=== PATIENT | male | born 1955 | race Caucasian/White ===

== ENCOUNTER 2017-10-06 09:14 | Inpatient (IN) | payer OTHER ==
[2017-10-06] MEDS ORDERED: MIDAZOLAM 1 MG/ML 2 ML INJ (10:38)
[2017-10-06] MEDS ORDERED: IODIXANOL LOCM 100 ML BTL (10:38)
[2017-10-06] MEDS ORDERED: HEPARIN 1000 UNITS/ML 10 ML INJ (10:38)
[2017-10-06] MEDS ORDERED: LIDOCAINE 1% (MDV) 20 ML INJ (10:38)
[2017-10-06] MEDS ORDERED: VERAPAMIL 5 MG INJ (10:39)
[2017-10-06] MEDS ORDERED: FENTAnyl 50 MCG/ML VIAL (10:39)
[2017-10-06] MEDS ORDERED: NITROGLYCERIN (IC) 100 MCG/ML INJ (10:39)
[2017-10-06] MEDS ORDERED: PHENYLephrine (100 MCG/ML) 5ML SYG (15:09)
[2017-10-06] MEDS ORDERED: INSULIN ASPART [NOVOLOG] 3 ML PEN SC ×2 (18:05→21:00)
[2017-10-06] MEDS ORDERED: GLUCOSE GEL 15 GRAM TUBE PO ×2 (18:30)
[2017-10-06] MEDS ORDERED: GLUCAGON 1 MG INJ IM (18:30)
[2017-10-06] MEDS ORDERED: DEXTROSE 50% 50 ML SYRINGE IV ×2 (18:30)
[2017-10-06] MEDS: INSULIN ASPART [NOVOLOG] 3 ML PEN SC ×2 (18:30→20:55)
[2017-10-06] MEDS ORDERED: GLUCOSE GEL 15 GRAM TUBE BUCCAL (18:30)
[2017-10-06] MEDS: FUROSEMIDE 20 MG TAB PO (19:09)
[2017-10-06] MEDS: ATORVASTATIN 40 MG TAB PO (20:47)
[2017-10-07] MEDS: ACCU-CHEK XX (01:33)
[2017-10-07] MEDS: PANTOPRAZOLE (EC) 40 MG TAB PO (05:58)
[2017-10-07] MEDS: FUROSEMIDE 20 MG TAB PO ×2 (05:58→17:04)
[2017-10-07 07:54] LABS: ADD MAN DIFF? NO
[2017-10-07 07:57] LABS: BASOPHIL # 0.1 10^3/ul (0.0-0.1); BASOPHILS % 0.5 % (0.0-2.0); EOSINOPHILS % 0.1 % (0.0-7.0); HEMOGLOBIN 12.7 g/dl (14.0-18.0); LYMPHOCYTES # 3.4 10^3/ul (0.8-2.9); MEAN CORPUSCULAR HEMOGLOBIN 26.7 pg (29.0-33.0); MEAN CORPUSCULAR HGB CONC 32.6 g/dl (32.0-37.0); MEAN CORPUSCULAR VOLUME 82.1 fl (82.0-101.0); MEAN PLATELET VOLUME 11.3 fl (7.4-10.4); MONOCYTE # 1.2 10^3/ul (0.3-0.9); MONOCYTES % 7.6 % (0.0-11.0); NEUTROPHIL # 10.8 10^3/ul (1.6-7.5); NEUTROPHILS % 67.9 % (39.0-77.0); PLATELET COUNT 261 10^3/UL (140-415); RED BLOOD COUNT 4.75 10^6/ul (4.70-6.10); RED CELL DISTRIBUTION WIDTH 15.1 % (11.5-14.5)
[2017-10-07] MEDS: INSULIN ASPART [NOVOLOG] 3 ML PEN SC ×4 (08:00→20:37)
[2017-10-07 08:20] LABS: ANION GAP 12 (8-16); BLOOD UREA NITROGEN 28 mg/dl (7-20); CALCIUM 8.3 mg/dl (8.4-10.2); CARBON DIOXIDE 27 mmol/L (21-31); CHLORIDE 102 mmol/L (97-110); CREATININE 0.87 mg/dl (0.61-1.24); GLUCOSE 117 mg/dl (70-220); PHOSPHORUS 3.2 mg/dl (2.5-4.9); POTASSIUM 3.8 mmol/L (3.5-5.1); SODIUM 137 mmol/L (135-144)
[2017-10-07] MEDS: ASPIRIN (EC) 81 MG TAB PO (08:50)
[2017-10-07] MEDS: ENOXAPARIN 40 MG/0.4 ML SYG SC (08:57)
[2017-10-07] MEDS: LEVOFLOXACIN 750MG/D5W (PMX) 150 ML IVPB (09:00)
[2017-10-07] MEDS ORDERED: LEVOFLOXACIN 750 MG/150 ML BAG IVPB (09:00)
[2017-10-07] MEDS: ZINC OXIDE 20% 30 GM OINT TOP (17:26)
[2017-10-07] MEDS: ATORVASTATIN 40 MG TAB PO (20:38)
[2017-10-08] MEDS: ACCU-CHEK XX (01:59)
[2017-10-08] MEDS: FUROSEMIDE 20 MG TAB PO ×2 (06:00→17:50)
[2017-10-08] MEDS: PANTOPRAZOLE (EC) 40 MG TAB PO (06:00)
[2017-10-08] MEDS: INSULIN ASPART [NOVOLOG] 3 ML PEN SC ×4 (08:00→20:13)
[2017-10-08] MEDS: ZINC OXIDE 20% 30 GM OINT TOP ×3 (09:00→20:11)
[2017-10-08] MEDS: ASPIRIN (EC) 81 MG TAB PO (09:33)
[2017-10-08] MEDS: LEVOFLOXACIN 750MG/D5W (PMX) 150 ML IVPB (09:34)
[2017-10-08] MEDS: ENOXAPARIN 40 MG/0.4 ML SYG SC (09:34)
[2017-10-08] MEDS: ATORVASTATIN 40 MG TAB PO (20:14)
[2017-10-09] MEDS: ACCU-CHEK XX (01:44)
[2017-10-09] MEDS: PANTOPRAZOLE (EC) 40 MG TAB PO (06:22)
[2017-10-09] MEDS: FUROSEMIDE 20 MG TAB PO ×2 (06:22→19:26)
[2017-10-09] MEDS: INSULIN ASPART [NOVOLOG] 3 ML PEN SC ×4 (08:00→21:00)
[2017-10-09] MEDS: LEVOFLOXACIN 750MG/D5W (PMX) 150 ML IVPB (08:44)
[2017-10-09] MEDS: ASPIRIN (EC) 81 MG TAB PO (08:44)
[2017-10-09] MEDS: ENOXAPARIN 40 MG/0.4 ML SYG SC (08:46)
[2017-10-09 10:15] LABS: ADD MAN DIFF? NO
[2017-10-09 10:17] LABS: BASOPHIL # 0.1 10^3/ul (0.0-0.1); BASOPHILS % 0.6 % (0.0-2.0); EOSINOPHILS # 0.3 10^3/ul (0.0-0.5); EOSINOPHILS % 1.8 % (0.0-7.0); HEMATOCRIT 43.4 % (42.0-52.0); HEMOGLOBIN 14.2 g/dl (14.0-18.0); LYMPHOCYTES % 24.9 % (15.0-51.0); MEAN CORPUSCULAR HEMOGLOBIN 26.7 pg (29.0-33.0); MEAN CORPUSCULAR HGB CONC 32.7 g/dl (32.0-37.0); MEAN CORPUSCULAR VOLUME 81.6 fl (82.0-101.0); MEAN PLATELET VOLUME 10.5 fl (7.4-10.4); MONOCYTE # 0.8 10^3/ul (0.3-0.9); MONOCYTES % 5.1 % (0.0-11.0); NEUTROPHIL # 10.3 10^3/ul (1.6-7.5); NEUTROPHILS % 63.3 % (39.0-77.0); PLATELET COUNT 305 10^3/UL (140-415); RED BLOOD COUNT 5.32 10^6/ul (4.70-6.10); RED CELL DISTRIBUTION WIDTH 15.2 % (11.5-14.5)
[2017-10-09 10:17] LABS: WHITE BLOOD COUNT 16.2 10^3/ul (4.8-10.8)
[2017-10-09 10:34] LABS: ANION GAP 11 (8-16); BLOOD UREA NITROGEN 17 mg/dl (7-20); CALCIUM 8.2 mg/dl (8.4-10.2); CARBON DIOXIDE 27 mmol/L (21-31); CHLORIDE 103 mmol/L (97-110); CREATININE 0.79 mg/dl (0.61-1.24); GLUCOSE 115 mg/dl (70-220); POTASSIUM 4.1 mmol/L (3.5-5.1); SODIUM 137 mmol/L (135-144)
[2017-10-09] MEDS ORDERED: IODIXANOL LOCM 100 ML BTL ×2 (10:44→12:28)
[2017-10-09] MEDS ORDERED: VERAPAMIL 5 MG INJ (10:44)
[2017-10-09] MEDS ORDERED: MIDAZOLAM 1 MG/ML 2 ML INJ (10:44)
[2017-10-09] MEDS ORDERED: FENTAnyl 50 MCG/ML VIAL (10:44)
[2017-10-09] MEDS ORDERED: LIDOCAINE 1% (MDV) 20 ML INJ (10:44)
[2017-10-09] MEDS ORDERED: NITROGLYCERIN (IC) 100 MCG/ML INJ (10:45)
[2017-10-09] MEDS ORDERED: ASPIRIN 325 MG TAB (11:07)
[2017-10-09] MEDS ORDERED: TICAGRELOR 90 MG TABLET (11:07)
[2017-10-09] MEDS ORDERED: BIVALIRUDIN 250MG /NS 50 ML 50 ML IVPB ×2 (11:25→12:22)
[2017-10-09] MEDS ORDERED: IOHEXOL 350MG/ML 50 ML BTL (12:28)
[2017-10-09] MEDS ORDERED: NORepinephrine 8MG/250 ML (PMX 250 ML (12:31)
[2017-10-09] MEDS ORDERED: ATROPINE 1 MG/10 ML SYRINGE (19:54)
[2017-10-09] MEDS: ATORVASTATIN 40 MG TAB PO (21:17)
[2017-10-09] MEDS: TICAGRELOR 90 MG TABLET PO (21:19)
[2017-10-09] MEDS: ZINC OXIDE 20% 30 GM OINT TOP (21:53)
[2017-10-10] MEDS: ACCU-CHEK XX (02:00)
[2017-10-10 05:15] LABS: ADD MAN DIFF? NO
[2017-10-10 05:20] LABS: WHITE BLOOD COUNT 17.1 10^3/ul (4.8-10.8)
[2017-10-10 05:20] LABS: BASOPHIL # 0.1 10^3/ul (0.0-0.1); BASOPHILS % 0.5 % (0.0-2.0); EOSINOPHILS # 0.2 10^3/ul (0.0-0.5); EOSINOPHILS % 1.4 % (0.0-7.0); HEMATOCRIT 42.3 % (42.0-52.0); HEMOGLOBIN 13.8 g/dl (14.0-18.0); LYMPHOCYTES # 2.5 10^3/ul (0.8-2.9); LYMPHOCYTES % 14.8 % (15.0-51.0); MEAN CORPUSCULAR HEMOGLOBIN 26.5 pg (29.0-33.0); MEAN CORPUSCULAR HGB CONC 32.6 g/dl (32.0-37.0); MEAN CORPUSCULAR VOLUME 81.3 fl (82.0-101.0); MEAN PLATELET VOLUME 10.9 fl (7.4-10.4); MONOCYTE # 0.9 10^3/ul (0.3-0.9); MONOCYTES % 5.4 % (0.0-11.0); NEUTROPHIL # 12.7 10^3/ul (1.6-7.5); NEUTROPHILS % 73.9 % (39.0-77.0); PLATELET COUNT 307 10^3/UL (140-415); RED CELL DISTRIBUTION WIDTH 15.4 % (11.5-14.5)
[2017-10-10] MEDS: PANTOPRAZOLE (EC) 40 MG TAB PO (05:59)
[2017-10-10] MEDS: FUROSEMIDE 20 MG TAB PO ×2 (06:01→18:11)
[2017-10-10 06:45] LABS: ANION GAP 13 (8-16); BLOOD UREA NITROGEN 17 mg/dl (7-20); CALCIUM 8.4 mg/dl (8.4-10.2); CARBON DIOXIDE 27 mmol/L (21-31); CHLORIDE 100 mmol/L (97-110); CREATININE 0.92 mg/dl (0.61-1.24); GLUCOSE 96 mg/dl (70-220); PHOSPHORUS 3.6 mg/dl (2.5-4.9); POTASSIUM 3.6 mmol/L (3.5-5.1); SODIUM 136 mmol/L (135-144)
[2017-10-10] MEDS: INSULIN ASPART [NOVOLOG] 3 ML PEN SC ×4 (07:35→20:39)
[2017-10-10] MEDS: ASPIRIN (EC) 81 MG TAB PO (08:40)
[2017-10-10] MEDS: LEVOFLOXACIN 750MG/D5W (PMX) 150 ML IVPB (08:40)
[2017-10-10] MEDS: TICAGRELOR 90 MG TABLET PO ×2 (08:42→20:28)
[2017-10-10] MEDS: ENOXAPARIN 40 MG/0.4 ML SYG SC (08:43)
[2017-10-10] MEDS: ZINC OXIDE 20% 30 GM OINT TOP ×2 (09:57→20:40)
[2017-10-10] MEDS ORDERED: ATROPINE 1 MG/10 ML SYRINGE (14:02)
[2017-10-10 17:43] LABS: ADD UMIC NO; UR ASCORBIC ACID NEGATIVE (NEGATIVE); UR BILIRUBIN (Dip) NEGATIVE (NEGATIVE); UR BLOOD (Dip) NEGATIVE (NEGATIVE); UR CLARITY CLEAR (CLEAR); UR COLOR YELLOW (YELLOW); UR GLUCOSE (Dip) NEGATIVE (NEGATIVE); UR KETONES (Dip) NEGATIVE (NEGATIVE); UR LEUKOCYTE ESTERASE (Dip) NEGATIVE Leu/ul (NEGATIVE); UR NITRITE (Dip) NEGATIVE (NEGATIVE); UR SPECIFIC GRAVITY (Dip) 1.027 (1.003-1.030); UR TOTAL PROTEIN (Dip) NEGATIVE (NEGATIVE); UR UROBILINOGEN (Dip) 2+ mg/dL (NEGATIVE)
[2017-10-10 18:30] LABS: SODIUM,URINE RANDOM 137 mmol/L (30-90)
[2017-10-10 18:32] LABS: CREATININE,URINE RANDOM 64.91 mg/dl (20-370)
[2017-10-10] MEDS: ATORVASTATIN 40 MG TAB PO (20:23)
[2017-10-11] MEDS: ACCU-CHEK XX (02:39)
[2017-10-11 05:44] LABS: ADD MAN DIFF? NO
[2017-10-11 05:50] LABS: BASOPHILS % 0.2 % (0.0-2.0); EOSINOPHILS # 0.2 10^3/ul (0.0-0.5); EOSINOPHILS % 0.9 % (0.0-7.0); HEMATOCRIT 39.8 % (42.0-52.0); HEMOGLOBIN 13.5 g/dl (14.0-18.0); LYMPHOCYTES # 2.1 10^3/ul (0.8-2.9); LYMPHOCYTES % 13.2 % (15.0-51.0); MEAN CORPUSCULAR HEMOGLOBIN 26.9 pg (29.0-33.0); MEAN CORPUSCULAR HGB CONC 33.9 g/dl (32.0-37.0); MEAN CORPUSCULAR VOLUME 79.3 fl (82.0-101.0); MEAN PLATELET VOLUME 10.7 fl (7.4-10.4); MONOCYTE # 1.2 10^3/ul (0.3-0.9); MONOCYTES % 7.5 % (0.0-11.0); NEUTROPHILS % 75.7 % (39.0-77.0); PLATELET COUNT 294 10^3/UL (140-415); RED BLOOD COUNT 5.02 10^6/ul (4.70-6.10); RED CELL DISTRIBUTION WIDTH 15.7 % (11.5-14.5)
[2017-10-11 05:50] LABS: WHITE BLOOD COUNT 15.9 10^3/ul (4.8-10.8)
[2017-10-11] MEDS: PANTOPRAZOLE (EC) 40 MG TAB PO (06:17)
[2017-10-11] MEDS: FUROSEMIDE 20 MG TAB PO ×2 (06:19→18:00)
[2017-10-11 06:25] LABS: ANION GAP 15 (8-16); BLOOD UREA NITROGEN 17 mg/dl (7-20); CALCIUM 8.6 mg/dl (8.4-10.2); CARBON DIOXIDE 25 mmol/L (21-31); CHLORIDE 100 mmol/L (97-110); GLUCOSE 109 mg/dl (70-220); MAGNESIUM 1.9 mg/dl (1.7-2.5); PHOSPHORUS 3.7 mg/dl (2.5-4.9); POTASSIUM 3.9 mmol/L (3.5-5.1); SODIUM 136 mmol/L (135-144)
[2017-10-11] MEDS: INSULIN ASPART [NOVOLOG] 3 ML PEN SC ×4 (07:35→20:43)
[2017-10-11] MEDS: LEVOFLOXACIN 750MG/D5W (PMX) 150 ML IVPB (09:00)
[2017-10-11] MEDS: ENOXAPARIN 40 MG/0.4 ML SYG SC (09:00)
[2017-10-11] MEDS: ASPIRIN (EC) 81 MG TAB PO ×2 (09:00→12:56)
[2017-10-11] MEDS: TICAGRELOR 90 MG TABLET PO ×3 (09:00→20:43)
[2017-10-11] MEDS: ZINC OXIDE 20% 30 GM OINT TOP ×2 (09:00→20:44)
[2017-10-11] MEDS ORDERED: BACLOFEN 10 MG TAB PO (09:00)
[2017-10-11 14:22] LABS: CREATININE, RANDOM URINE 77 mg/dL (20-370); MICROALBUMIN <0.2 mg/dL; MICROALBUMIN/CREATININE RATIO NOTE (<30)
[2017-10-11] MEDS: ATORVASTATIN 40 MG TAB PO (20:42)
[2017-10-12] MEDS: ACCU-CHEK XX (01:17)
[2017-10-12 05:12] LABS: ADD MAN DIFF? NO
[2017-10-12 05:20] LABS: WHITE BLOOD COUNT 15.9 10^3/ul (4.8-10.8)
[2017-10-12 05:20] LABS: ABNORMAL IP MESSAGE 1; BASOPHILS % 0.2 % (0.0-2.0); EOSINOPHILS # 0.2 10^3/ul (0.0-0.5); EOSINOPHILS % 1.5 % (0.0-7.0); HEMOGLOBIN 12.2 g/dl (14.0-18.0); LYMPHOCYTES # 2.1 10^3/ul (0.8-2.9); MEAN CORPUSCULAR HEMOGLOBIN 26.8 pg (29.0-33.0); MEAN CORPUSCULAR HGB CONC 33.9 g/dl (32.0-37.0); MEAN CORPUSCULAR VOLUME 79.1 fl (82.0-101.0); MEAN PLATELET VOLUME 10.6 fl (7.4-10.4); MONOCYTE # 1.6 10^3/ul (0.3-0.9); MONOCYTES % 9.8 % (0.0-11.0); NEUTROPHIL # 11.8 10^3/ul (1.6-7.5); NEUTROPHILS % 74.2 % (39.0-77.0); PLATELET COUNT 268 10^3/UL (140-415); POSITIVE DIFF @See below; RED BLOOD COUNT 4.55 10^6/ul (4.70-6.10); RED CELL DISTRIBUTION WIDTH 15.6 % (11.5-14.5)
[2017-10-12] MEDS: PANTOPRAZOLE (EC) 40 MG TAB PO (05:47)
[2017-10-12] MEDS: FUROSEMIDE 20 MG TAB PO ×2 (05:47→17:56)
[2017-10-12 05:51] LABS: ANION GAP 13 (8-16); BLOOD UREA NITROGEN 17 mg/dl (7-20); CALCIUM 8.1 mg/dl (8.4-10.2); CARBON DIOXIDE 22 mmol/L (21-31); CHLORIDE 105 mmol/L (97-110); CREATININE 0.82 mg/dl (0.61-1.24); GLUCOSE 138 mg/dl (70-220); POTASSIUM 3.4 mmol/L (3.5-5.1); SODIUM 137 mmol/L (135-144)
[2017-10-12] MEDS: INSULIN ASPART [NOVOLOG] 3 ML PEN SC ×4 (07:35→21:00)
[2017-10-12] MEDS: POTASSIUM CHLORIDE (SR) 20 MEQ TAB PO (08:39)
[2017-10-12] MEDS: ASPIRIN (EC) 81 MG TAB PO (08:39)
[2017-10-12] MEDS: TICAGRELOR 90 MG TABLET PO ×2 (08:58→21:03)
[2017-10-12] MEDS: ENOXAPARIN 40 MG/0.4 ML SYG SC (08:58)
[2017-10-12] MEDS: ZINC OXIDE 20% 30 GM OINT TOP ×2 (08:59→21:04)
[2017-10-12] MEDS: LEVOFLOXACIN 750MG/D5W (PMX) 150 ML IVPB (10:34)
[2017-10-12] MEDS: ATORVASTATIN 40 MG TAB PO (21:02)
[2017-10-12] MEDS: BALSAM PERU/CASTOR OIL 60 GM TUBE TOP (21:03)
[2017-10-13] MEDS: ACCU-CHEK XX (02:00)
[2017-10-13] MEDS: BENZONATATE 100 MG CAP PO ×3 (02:02→21:09)
[2017-10-13] MEDS: FUROSEMIDE 20 MG TAB PO ×2 (05:33→17:54)
[2017-10-13] MEDS: PANTOPRAZOLE (EC) 40 MG TAB PO (05:33)
[2017-10-13] MEDS: INSULIN ASPART [NOVOLOG] 3 ML PEN SC ×4 (07:55→21:00)
[2017-10-13 07:56] LABS: ADD MAN DIFF? NO
[2017-10-13 08:06] LABS: ABNORMAL IP MESSAGE 1; BASOPHIL # 0.1 10^3/ul (0.0-0.1); BASOPHILS % 0.3 % (0.0-2.0); EOSINOPHILS # 0.2 10^3/ul (0.0-0.5); EOSINOPHILS % 1.3 % (0.0-7.0); HEMATOCRIT 35.4 % (42.0-52.0); HEMOGLOBIN 11.6 g/dl (14.0-18.0); LYMPHOCYTES # 2.2 10^3/ul (0.8-2.9); LYMPHOCYTES % 13.5 % (15.0-51.0); MEAN CORPUSCULAR HEMOGLOBIN 26.5 pg (29.0-33.0); MEAN CORPUSCULAR HGB CONC 32.8 g/dl (32.0-37.0); MEAN PLATELET VOLUME 10.6 fl (7.4-10.4); MONOCYTE # 1.6 10^3/ul (0.3-0.9); MONOCYTES % 9.8 % (0.0-11.0); NEUTROPHIL # 12.3 10^3/ul (1.6-7.5); NEUTROPHILS % 73.8 % (39.0-77.0); PLATELET COUNT 269 10^3/UL (140-415); POSITIVE DIFF @See below; RED BLOOD COUNT 4.37 10^6/ul (4.70-6.10); RED CELL DISTRIBUTION WIDTH 15.6 % (11.5-14.5)
[2017-10-13 08:06] LABS: WHITE BLOOD COUNT 16.6 10^3/ul (4.8-10.8)
[2017-10-13 08:37] LABS: ANION GAP 13 (8-16); BLOOD UREA NITROGEN 16 mg/dl (7-20); CALCIUM 8.2 mg/dl (8.4-10.2); CARBON DIOXIDE 23 mmol/L (21-31); CHLORIDE 103 mmol/L (97-110); CREATININE 0.89 mg/dl (0.61-1.24); GLUCOSE 112 mg/dl (70-220); MAGNESIUM 1.8 mg/dl (1.7-2.5); PHOSPHORUS 3.1 mg/dl (2.5-4.9); POTASSIUM 3.7 mmol/L (3.5-5.1); SODIUM 135 mmol/L (135-144)
[2017-10-13] MEDS: ASPIRIN (EC) 81 MG TAB PO (08:40)
[2017-10-13] MEDS: BALSAM PERU/CASTOR OIL 60 GM TUBE TOP ×2 (08:48→21:10)
[2017-10-13] MEDS: ENOXAPARIN 40 MG/0.4 ML SYG SC (08:59)
[2017-10-13] MEDS: TICAGRELOR 90 MG TABLET PO ×2 (08:59→21:08)
[2017-10-13] MEDS: ZINC OXIDE 20% 30 GM OINT TOP ×2 (09:00→21:10)
[2017-10-13] MEDS: LEVOFLOXACIN 750MG/D5W (PMX) 150 ML IVPB (09:24)
[2017-10-13 16:33] LABS: PROCALCITONIN <0.10 ng/mL (<0.10)
[2017-10-13] MEDS: ATORVASTATIN 40 MG TAB PO (21:09)
[2017-10-13] MEDS: HYDROCODONE/APAP (5/325) TAB PO (21:12)
[2017-10-14] MEDS: ACCU-CHEK XX (02:00)
[2017-10-14] MEDS: PANTOPRAZOLE (EC) 40 MG TAB PO (05:42)
[2017-10-14] MEDS: FUROSEMIDE 20 MG TAB PO ×2 (05:42→17:13)
[2017-10-14] MEDS: INSULIN ASPART [NOVOLOG] 3 ML PEN SC ×4 (07:36→21:00)
[2017-10-14] MEDS: ASPIRIN (EC) 81 MG TAB PO (08:44)
[2017-10-14] MEDS: BENZONATATE 100 MG CAP PO ×2 (08:44→20:34)
[2017-10-14] MEDS: LEVOFLOXACIN 750MG/D5W (PMX) 150 ML IVPB (08:44)
[2017-10-14] MEDS: BALSAM PERU/CASTOR OIL 60 GM TUBE TOP ×2 (08:45→20:42)
[2017-10-14] MEDS: TICAGRELOR 90 MG TABLET PO ×2 (08:46→20:37)
[2017-10-14] MEDS: ENOXAPARIN 40 MG/0.4 ML SYG SC (08:46)
[2017-10-14] MEDS: ZINC OXIDE 20% 30 GM OINT TOP ×2 (08:47→20:42)
[2017-10-14] MEDS: BISACODYL (EC) 5 MG TAB PO (14:38)
[2017-10-14] MEDS: ATORVASTATIN 40 MG TAB PO (20:34)
[2017-10-15] MEDS: ACCU-CHEK XX (01:35)
[2017-10-15] MEDS: FUROSEMIDE 20 MG TAB PO ×2 (05:31→17:03)
[2017-10-15] MEDS: PANTOPRAZOLE (EC) 40 MG TAB PO (05:31)
[2017-10-15 07:25] LABS: ADD MAN DIFF? NO
[2017-10-15 07:29] LABS: WHITE BLOOD COUNT 17.2 10^3/ul (4.8-10.8)
[2017-10-15 07:29] LABS: BASOPHIL # 0.1 10^3/ul (0.0-0.1); BASOPHILS % 0.3 % (0.0-2.0); EOSINOPHILS # 0.2 10^3/ul (0.0-0.5); EOSINOPHILS % 1.3 % (0.0-7.0); HEMATOCRIT 38.5 % (42.0-52.0); HEMOGLOBIN 12.8 g/dl (14.0-18.0); LYMPHOCYTES # 1.8 10^3/ul (0.8-2.9); LYMPHOCYTES % 10.5 % (15.0-51.0); MEAN CORPUSCULAR HEMOGLOBIN 26.5 pg (29.0-33.0); MEAN CORPUSCULAR HGB CONC 33.2 g/dl (32.0-37.0); MEAN CORPUSCULAR VOLUME 79.7 fl (82.0-101.0); MEAN PLATELET VOLUME 10.5 fl (7.4-10.4); MONOCYTE # 1.3 10^3/ul (0.3-0.9); MONOCYTES % 7.7 % (0.0-11.0); NEUTROPHIL # 13.6 10^3/ul (1.6-7.5); NEUTROPHILS % 79.4 % (39.0-77.0); PLATELET COUNT 328 10^3/UL (140-415); RED BLOOD COUNT 4.83 10^6/ul (4.70-6.10); RED CELL DISTRIBUTION WIDTH 15.9 % (11.5-14.5)
[2017-10-15] MEDS: INSULIN ASPART [NOVOLOG] 3 ML PEN SC ×4 (07:32→21:00)
[2017-10-15] MEDS: BENZONATATE 100 MG CAP PO ×2 (07:44→20:28)
[2017-10-15] MEDS: ASPIRIN (EC) 81 MG TAB PO (07:45)
[2017-10-15] MEDS: BALSAM PERU/CASTOR OIL 60 GM TUBE TOP ×2 (07:45→20:28)
[2017-10-15] MEDS: ZINC OXIDE 20% 30 GM OINT TOP ×2 (07:45→20:28)
[2017-10-15] MEDS: TICAGRELOR 90 MG TABLET PO ×2 (07:50→20:30)
[2017-10-15] MEDS: ENOXAPARIN 40 MG/0.4 ML SYG SC (07:50)
[2017-10-15 07:51] LABS: MAGNESIUM 1.8 mg/dl (1.7-2.5)
[2017-10-15 07:51] LABS: PHOSPHORUS 3.6 mg/dl (2.5-4.9)
[2017-10-15 07:58] LABS: ANION GAP 13 (8-16); BLOOD UREA NITROGEN 23 mg/dl (7-20); CALCIUM 9.1 mg/dl (8.4-10.2); CARBON DIOXIDE 26 mmol/L (21-31); CHLORIDE 101 mmol/L (97-110); CREATININE 0.95 mg/dl (0.61-1.24); GLUCOSE 126 mg/dl (70-220); POTASSIUM 3.2 mmol/L (3.5-5.1); SODIUM 137 mmol/L (135-144)
[2017-10-15 08:57] LABS: CHOL/HDL RATIO 3.3 RATIO; HDL CHOLESTEROL 35 mg/dl (30-78); LDL CHOLESTEROL,CALCULATED 62 mg/dl; TRIGLYCERIDES 98 mg/dl (0-149)
[2017-10-15 08:57] LABS: CHOLESTEROL 117 mg/dl (100-200)
[2017-10-15 09:36] LABS: HEMOGLOBIN A1C 7.3 % (0-5.9)
[2017-10-15] MEDS: POTASSIUM CHLORIDE (SR) 20 MEQ TAB PO (16:07)
[2017-10-15] MEDS: ATORVASTATIN 40 MG TAB PO (20:27)
[2017-10-16] MEDS: ACCU-CHEK XX (02:00)
[2017-10-16] MEDS: PANTOPRAZOLE (EC) 40 MG TAB PO (05:28)
[2017-10-16] MEDS: FUROSEMIDE 20 MG TAB PO ×2 (05:29→17:46)
[2017-10-16 07:35] LABS: ADD MAN DIFF? NO
[2017-10-16 07:51] LABS: WHITE BLOOD COUNT 15.6 10^3/ul (4.8-10.8)
[2017-10-16 07:51] LABS: BASOPHIL # 0.1 10^3/ul (0.0-0.1); BASOPHILS % 0.4 % (0.0-2.0); EOSINOPHILS # 0.2 10^3/ul (0.0-0.5); EOSINOPHILS % 1.2 % (0.0-7.0); HEMATOCRIT 37.9 % (42.0-52.0); HEMOGLOBIN 12.7 g/dl (14.0-18.0); LYMPHOCYTES # 1.8 10^3/ul (0.8-2.9); LYMPHOCYTES % 11.5 % (15.0-51.0); MEAN CORPUSCULAR HEMOGLOBIN 26.7 pg (29.0-33.0); MEAN CORPUSCULAR HGB CONC 33.5 g/dl (32.0-37.0); MEAN CORPUSCULAR VOLUME 79.8 fl (82.0-101.0); MEAN PLATELET VOLUME 10.7 fl (7.4-10.4); MONOCYTE # 1.1 10^3/ul (0.3-0.9); MONOCYTES % 6.9 % (0.0-11.0); NEUTROPHIL # 12.3 10^3/ul (1.6-7.5); PLATELET COUNT 326 10^3/UL (140-415); RED BLOOD COUNT 4.75 10^6/ul (4.70-6.10); RED CELL DISTRIBUTION WIDTH 16.1 % (11.5-14.5)
[2017-10-16 08:04] LABS: MAGNESIUM 1.7 mg/dl (1.7-2.5)
[2017-10-16 08:04] LABS: PHOSPHORUS 3.2 mg/dl (2.5-4.9)
[2017-10-16 08:06] LABS: ANION GAP 14 (8-16); BLOOD UREA NITROGEN 24 mg/dl (7-20); CALCIUM 9.5 mg/dl (8.4-10.2); CARBON DIOXIDE 26 mmol/L (21-31); CHLORIDE 100 mmol/L (97-110); CREATININE 0.94 mg/dl (0.61-1.24); GLUCOSE 125 mg/dl (70-220); POTASSIUM 3.8 mmol/L (3.5-5.1); SODIUM 136 mmol/L (135-144)
[2017-10-16] MEDS: ASPIRIN (EC) 81 MG TAB PO (08:24)
[2017-10-16] MEDS: TICAGRELOR 90 MG TABLET PO ×2 (08:25→20:26)
[2017-10-16] MEDS: ENOXAPARIN 40 MG/0.4 ML SYG SC (08:26)
[2017-10-16] MEDS: INSULIN ASPART [NOVOLOG] 3 ML PEN SC ×4 (08:27→20:27)
[2017-10-16] MEDS: BENZONATATE 100 MG CAP PO ×2 (08:28→20:25)
[2017-10-16] MEDS: BALSAM PERU/CASTOR OIL 60 GM TUBE TOP ×2 (08:29→20:27)
[2017-10-16] MEDS: ZINC OXIDE 20% 30 GM OINT TOP ×2 (08:30→20:28)
[2017-10-16] MEDS: ATORVASTATIN 40 MG TAB PO (20:24)
[2017-10-17] MEDS: ACCU-CHEK XX ×2 (02:00→23:10)
[2017-10-17] MEDS: PANTOPRAZOLE (EC) 40 MG TAB PO (06:09)
[2017-10-17] MEDS: FUROSEMIDE 20 MG TAB PO ×2 (06:09→17:43)
[2017-10-17] MEDS: INSULIN ASPART [NOVOLOG] 3 ML PEN SC ×4 (07:51→20:30)
[2017-10-17] MEDS: BENZONATATE 100 MG CAP PO ×2 (08:50→21:23)
[2017-10-17] MEDS: ASPIRIN (EC) 81 MG TAB PO (08:50)
[2017-10-17] MEDS: ENOXAPARIN 40 MG/0.4 ML SYG SC (08:52)
[2017-10-17] MEDS: TICAGRELOR 90 MG TABLET PO ×2 (08:53→21:27)
[2017-10-17] MEDS: ZINC OXIDE 20% 30 GM OINT TOP ×3 (09:00→21:49)
[2017-10-17] MEDS: BALSAM PERU/CASTOR OIL 60 GM TUBE TOP ×2 (09:23→21:47)
[2017-10-17] MEDS: ATORVASTATIN 40 MG TAB PO (21:23)
[2017-10-17] MEDS: ACETAMINOPHEN 325 MG TAB PO (23:09)
[2017-10-18] MEDS: PANTOPRAZOLE (EC) 40 MG TAB PO (06:05)
[2017-10-18] MEDS: FUROSEMIDE 20 MG TAB PO ×2 (06:06→17:08)
[2017-10-18] MEDS: INSULIN ASPART [NOVOLOG] 3 ML PEN SC ×4 (08:14→21:00)
[2017-10-18] MEDS: TICAGRELOR 90 MG TABLET PO ×2 (08:15→21:10)
[2017-10-18] MEDS: BENZONATATE 100 MG CAP PO ×2 (08:15→21:06)
[2017-10-18] MEDS: ASPIRIN (EC) 81 MG TAB PO (08:16)
[2017-10-18] MEDS: ZINC OXIDE 20% 30 GM OINT TOP ×2 (08:16→21:13)
[2017-10-18] MEDS: BALSAM PERU/CASTOR OIL 60 GM TUBE TOP ×2 (08:16→21:13)
[2017-10-18] MEDS: ENOXAPARIN 40 MG/0.4 ML SYG SC (08:17)
[2017-10-18 13:45] LABS: ADD MAN DIFF? NO
[2017-10-18 13:50] LABS: WHITE BLOOD COUNT 8.4 10^3/ul (4.8-10.8)
[2017-10-18 13:50] LABS: BASOPHIL # 0.1 10^3/ul (0.0-0.1); EOSINOPHILS # 0.2 10^3/ul (0.0-0.5); EOSINOPHILS % 2.2 % (0.0-7.0); HEMATOCRIT 38.5 % (42.0-52.0); HEMOGLOBIN 12.4 g/dl (14.0-18.0); LYMPHOCYTES # 1.2 10^3/ul (0.8-2.9); LYMPHOCYTES % 13.8 % (15.0-51.0); MEAN CORPUSCULAR HEMOGLOBIN 26.2 pg (29.0-33.0); MEAN CORPUSCULAR HGB CONC 32.2 g/dl (32.0-37.0); MEAN CORPUSCULAR VOLUME 81.4 fl (82.0-101.0); MEAN PLATELET VOLUME 10.3 fl (7.4-10.4); MONOCYTE # 0.4 10^3/ul (0.3-0.9); MONOCYTES % 4.8 % (0.0-11.0); NEUTROPHIL # 6.5 10^3/ul (1.6-7.5); NEUTROPHILS % 77.6 % (39.0-77.0); PLATELET COUNT 346 10^3/UL (140-415); RED BLOOD COUNT 4.73 10^6/ul (4.70-6.10); RED CELL DISTRIBUTION WIDTH 15.7 % (11.5-14.5)
[2017-10-18 14:04] LABS: ANION GAP 16 (8-16); BLOOD UREA NITROGEN 17 mg/dl (7-20); CALCIUM 8.8 mg/dl (8.4-10.2); CARBON DIOXIDE 26 mmol/L (21-31); CHLORIDE 102 mmol/L (97-110); CREATININE 0.83 mg/dl (0.61-1.24); GLUCOSE 132 mg/dl (70-220); POTASSIUM 3.6 mmol/L (3.5-5.1); SODIUM 140 mmol/L (135-144)
[2017-10-18] MEDS: BISACODYL (EC) 5 MG TAB PO (17:14)
[2017-10-18] MEDS: ATORVASTATIN 40 MG TAB PO (21:06)
[2017-10-18] MEDS: ACCU-CHEK XX (21:13)
[2017-10-19] MEDS: PANTOPRAZOLE (EC) 40 MG TAB PO (06:22)
[2017-10-19] MEDS: FUROSEMIDE 20 MG TAB PO ×2 (06:23→18:27)
[2017-10-19] MEDS: INSULIN ASPART [NOVOLOG] 3 ML PEN SC ×4 (07:55→21:00)
[2017-10-19 08:21] LABS: ADD MAN DIFF? NO
[2017-10-19 08:31] LABS: WHITE BLOOD COUNT 10.3 10^3/ul (4.8-10.8)
[2017-10-19 08:31] LABS: BASOPHIL # 0.1 10^3/ul (0.0-0.1); BASOPHILS % 0.9 % (0.0-2.0); EOSINOPHILS # 0.3 10^3/ul (0.0-0.5); EOSINOPHILS % 2.4 % (0.0-7.0); HEMATOCRIT 37.3 % (42.0-52.0); LYMPHOCYTES # 1.7 10^3/ul (0.8-2.9); LYMPHOCYTES % 16.2 % (15.0-51.0); MEAN CORPUSCULAR HGB CONC 32.2 g/dl (32.0-37.0); MEAN CORPUSCULAR VOLUME 80.9 fl (82.0-101.0); MEAN PLATELET VOLUME 10.4 fl (7.4-10.4); MONOCYTE # 0.8 10^3/ul (0.3-0.9); NEUTROPHIL # 7.4 10^3/ul (1.6-7.5); NEUTROPHILS % 72.1 % (39.0-77.0); PLATELET COUNT 361 10^3/UL (140-415); RED BLOOD COUNT 4.61 10^6/ul (4.70-6.10); RED CELL DISTRIBUTION WIDTH 15.6 % (11.5-14.5)
[2017-10-19 08:49] LABS: ANION GAP 14 (8-16); BLOOD UREA NITROGEN 17 mg/dl (7-20); CALCIUM 8.5 mg/dl (8.4-10.2); CARBON DIOXIDE 25 mmol/L (21-31); CHLORIDE 102 mmol/L (97-110); CREATININE 0.86 mg/dl (0.61-1.24); GLUCOSE 115 mg/dl (70-220); POTASSIUM 3.7 mmol/L (3.5-5.1); SODIUM 137 mmol/L (135-144)
[2017-10-19] MEDS: ASPIRIN (EC) 81 MG TAB PO (08:51)
[2017-10-19] MEDS: BENZONATATE 100 MG CAP PO ×2 (08:52→21:06)
[2017-10-19] MEDS: ENOXAPARIN 40 MG/0.4 ML SYG SC (08:57)
[2017-10-19] MEDS: TICAGRELOR 90 MG TABLET PO ×2 (08:57→21:10)
[2017-10-19] MEDS: BALSAM PERU/CASTOR OIL 60 GM TUBE TOP ×2 (09:04→21:08)
[2017-10-19] MEDS: ZINC OXIDE 20% 30 GM OINT TOP ×2 (09:05→21:08)
[2017-10-19] MEDS: ACCU-CHEK XX (21:05)
[2017-10-19] MEDS: ATORVASTATIN 40 MG TAB PO (21:06)
[2017-10-20] MEDS: FUROSEMIDE 20 MG TAB PO ×2 (06:36→18:02)
[2017-10-20] MEDS: PANTOPRAZOLE (EC) 40 MG TAB PO (06:36)
[2017-10-20] MEDS: INSULIN ASPART [NOVOLOG] 3 ML PEN SC ×4 (07:55→20:13)
[2017-10-20] MEDS: BENZONATATE 100 MG CAP PO ×2 (08:58→20:13)
[2017-10-20] MEDS: TICAGRELOR 90 MG TABLET PO ×2 (09:02→20:18)
[2017-10-20] MEDS: ENOXAPARIN 40 MG/0.4 ML SYG SC (09:02)
[2017-10-20] MEDS: ZINC OXIDE 20% 30 GM OINT TOP ×2 (09:03→20:23)
[2017-10-20] MEDS: ASPIRIN (EC) 81 MG TAB PO (09:03)
[2017-10-20] MEDS: BALSAM PERU/CASTOR OIL 60 GM TUBE TOP ×2 (09:03→20:22)
[2017-10-20] MEDS: ATORVASTATIN 40 MG TAB PO (20:13)
[2017-10-20] MEDS: morphine 2 MG INJ IV (20:20)
[2017-10-20] MEDS: ACCU-CHEK XX (23:27)
[2017-10-21] MEDS: PANTOPRAZOLE (EC) 40 MG TAB PO (05:36)
[2017-10-21] MEDS: FUROSEMIDE 20 MG TAB PO ×2 (05:36→18:28)
[2017-10-21] MEDS: INSULIN ASPART [NOVOLOG] 3 ML PEN SC ×4 (07:55→20:37)
[2017-10-21] MEDS: BALSAM PERU/CASTOR OIL 60 GM TUBE TOP ×2 (09:00→21:51)
[2017-10-21] MEDS: ZINC OXIDE 20% 30 GM OINT TOP ×2 (09:00→21:51)
[2017-10-21] MEDS: BENZONATATE 100 MG CAP PO ×2 (09:24→20:20)
[2017-10-21] MEDS: ASPIRIN (EC) 81 MG TAB PO (09:24)
[2017-10-21] MEDS: TICAGRELOR 90 MG TABLET PO ×2 (10:09→20:36)
[2017-10-21] MEDS: ENOXAPARIN 40 MG/0.4 ML SYG SC (10:11)
[2017-10-21] MEDS: morphine 2 MG INJ IV (20:20)
[2017-10-21] MEDS: ATORVASTATIN 40 MG TAB PO (20:20)
[2017-10-21] MEDS: ACCU-CHEK XX (23:40)
[2017-10-22] MEDS: morphine 2 MG INJ IV (01:14)
[2017-10-22] MEDS: FUROSEMIDE 20 MG TAB PO ×2 (06:20→18:09)
[2017-10-22] MEDS: PANTOPRAZOLE (EC) 40 MG TAB PO (06:20)
[2017-10-22 06:35] LABS: ADD MAN DIFF? NO
[2017-10-22 06:42] LABS: BASOPHIL # 0.1 10^3/ul (0.0-0.1); BASOPHILS % 1.3 % (0.0-2.0); EOSINOPHILS # 0.4 10^3/ul (0.0-0.5); EOSINOPHILS % 5.6 % (0.0-7.0); HEMATOCRIT 35.8 % (42.0-52.0); HEMOGLOBIN 11.8 g/dl (14.0-18.0); LYMPHOCYTES # 2.1 10^3/ul (0.8-2.9); LYMPHOCYTES % 26.5 % (15.0-51.0); MEAN CORPUSCULAR HEMOGLOBIN 26.3 pg (29.0-33.0); MEAN CORPUSCULAR VOLUME 79.9 fl (82.0-101.0); MEAN PLATELET VOLUME 9.9 fl (7.4-10.4); MONOCYTE # 0.6 10^3/ul (0.3-0.9); MONOCYTES % 7.2 % (0.0-11.0); NEUTROPHIL # 4.7 10^3/ul (1.6-7.5); NEUTROPHILS % 59.1 % (39.0-77.0); PLATELET COUNT 359 10^3/UL (140-415); RED BLOOD COUNT 4.48 10^6/ul (4.70-6.10); RED CELL DISTRIBUTION WIDTH 15.3 % (11.5-14.5)
[2017-10-22 06:42] LABS: WHITE BLOOD COUNT 7.9 10^3/ul (4.8-10.8)
[2017-10-22 07:18] LABS: ANION GAP 14 (8-16); BLOOD UREA NITROGEN 15 mg/dl (7-20); CALCIUM 9.2 mg/dl (8.4-10.2); CARBON DIOXIDE 27 mmol/L (21-31); CHLORIDE 104 mmol/L (97-110); CREATININE 0.82 mg/dl (0.61-1.24); GLUCOSE 95 mg/dl (70-220); POTASSIUM 3.5 mmol/L (3.5-5.1); SODIUM 141 mmol/L (135-144)
[2017-10-22] MEDS: INSULIN ASPART [NOVOLOG] 3 ML PEN SC ×4 (07:55→20:44)
[2017-10-22] MEDS: BENZONATATE 100 MG CAP PO ×2 (08:54→20:41)
[2017-10-22] MEDS: ASPIRIN (EC) 81 MG TAB PO (08:55)
[2017-10-22] MEDS: TICAGRELOR 90 MG TABLET PO ×2 (08:55→20:35)
[2017-10-22] MEDS: ZINC OXIDE 20% 30 GM OINT TOP ×2 (08:56→20:45)
[2017-10-22] MEDS: ENOXAPARIN 40 MG/0.4 ML SYG SC (08:56)
[2017-10-22] MEDS: BALSAM PERU/CASTOR OIL 60 GM TUBE TOP ×2 (08:56→20:45)
[2017-10-22] MEDS: POTASSIUM CHLORIDE 20 MEQ POWDER FOR ORAL SOLN PO (11:00)
[2017-10-22] MEDS: ATORVASTATIN 40 MG TAB PO (20:33)
[2017-10-23] MEDS: ACCU-CHEK XX ×2 (01:07→21:31)
[2017-10-23 05:18] LABS: ADD MAN DIFF? NO
[2017-10-23 05:22] LABS: BASOPHIL # 0.1 10^3/ul (0.0-0.1); BASOPHILS % 1.1 % (0.0-2.0); EOSINOPHILS # 0.4 10^3/ul (0.0-0.5); EOSINOPHILS % 5.3 % (0.0-7.0); HEMATOCRIT 36.6 % (42.0-52.0); LYMPHOCYTES # 2.1 10^3/ul (0.8-2.9); MEAN CORPUSCULAR HEMOGLOBIN 26.3 pg (29.0-33.0); MEAN CORPUSCULAR HGB CONC 32.8 g/dl (32.0-37.0); MEAN CORPUSCULAR VOLUME 80.3 fl (82.0-101.0); MEAN PLATELET VOLUME 10.1 fl (7.4-10.4); MONOCYTE # 0.7 10^3/ul (0.3-0.9); MONOCYTES % 8.1 % (0.0-11.0); NEUTROPHIL # 4.8 10^3/ul (1.6-7.5); NEUTROPHILS % 59.1 % (39.0-77.0); PLATELET COUNT 368 10^3/UL (140-415); RED BLOOD COUNT 4.56 10^6/ul (4.70-6.10); RED CELL DISTRIBUTION WIDTH 15.5 % (11.5-14.5)
[2017-10-23 05:22] LABS: WHITE BLOOD COUNT 8.2 10^3/ul (4.8-10.8)
[2017-10-23 05:45] LABS: ANION GAP 13 (8-16); BLOOD UREA NITROGEN 17 mg/dl (7-20); CALCIUM 9.3 mg/dl (8.4-10.2); CARBON DIOXIDE 26 mmol/L (21-31); CHLORIDE 106 mmol/L (97-110); CREATININE 0.98 mg/dl (0.61-1.24); GLUCOSE 111 mg/dl (70-220); SODIUM 141 mmol/L (135-144)
[2017-10-23] MEDS: FUROSEMIDE 20 MG TAB PO ×2 (06:41→17:52)
[2017-10-23] MEDS: PANTOPRAZOLE (EC) 40 MG TAB PO (06:41)
[2017-10-23] MEDS: BENZONATATE 100 MG CAP PO ×2 (08:55→20:44)
[2017-10-23] MEDS: ASPIRIN (EC) 81 MG TAB PO (08:56)
[2017-10-23] MEDS: BALSAM PERU/CASTOR OIL 60 GM TUBE TOP ×2 (08:57→20:50)
[2017-10-23] MEDS: ZINC OXIDE 20% 30 GM OINT TOP ×2 (08:57→20:50)
[2017-10-23] MEDS: ENOXAPARIN 40 MG/0.4 ML SYG SC (09:01)
[2017-10-23] MEDS: TICAGRELOR 90 MG TABLET PO ×2 (09:01→20:45)
[2017-10-23] MEDS: INSULIN ASPART [NOVOLOG] 3 ML PEN SC ×4 (09:05→20:43)
[2017-10-23 10:30] LABS: IRON 45 ug/dl (35-150)
[2017-10-23 10:39] LABS: % IRON SATURATION 16 % SAT (22-52); TOTAL IRON BINDING CAPACITY 279 ug/dl (241-421)
[2017-10-23] MEDS: ACETAMINOPHEN 325 MG TAB PO (20:44)
[2017-10-23] MEDS: ATORVASTATIN 40 MG TAB PO (20:45)
[2017-10-23] MEDS: CEPASTAT LOZENGE MT (20:46)
[2017-10-23] MEDS: FLUTICASONE 0.05% 16 GM NAS SPRAY NASAL (21:00)
[2017-10-24] MEDS: FUROSEMIDE 20 MG TAB PO ×2 (05:39→17:28)
[2017-10-24] MEDS: PANTOPRAZOLE (EC) 40 MG TAB PO (05:39)
[2017-10-24] MEDS: ACETAMINOPHEN 325 MG TAB PO (05:40)
[2017-10-24] MEDS: INSULIN ASPART [NOVOLOG] 3 ML PEN SC ×4 (07:50→21:00)
[2017-10-24] MEDS: FLUTICASONE 0.05% 16 GM NAS SPRAY NASAL ×2 (09:00→21:00)
[2017-10-24] MEDS: BALSAM PERU/CASTOR OIL 60 GM TUBE TOP ×2 (09:32→21:52)
[2017-10-24] MEDS: ASPIRIN (EC) 81 MG TAB PO (09:32)
[2017-10-24] MEDS: BENZONATATE 100 MG CAP PO ×2 (09:32→21:51)
[2017-10-24] MEDS: ZINC OXIDE 20% 30 GM OINT TOP ×2 (09:33→21:53)
[2017-10-24] MEDS: TICAGRELOR 90 MG TABLET PO ×2 (09:34→21:59)
[2017-10-24] MEDS: ENOXAPARIN 40 MG/0.4 ML SYG SC (09:37)
[2017-10-24 15:13] LABS: ADD MAN DIFF? NO
[2017-10-24 15:17] LABS: BASOPHILS % 0.5 % (0.0-2.0); EOSINOPHILS # 0.6 10^3/ul (0.0-0.5); EOSINOPHILS % 7.6 % (0.0-7.0); HEMATOCRIT 38.4 % (42.0-52.0); HEMOGLOBIN 12.8 g/dl (14.0-18.0); LYMPHOCYTES # 1.4 10^3/ul (0.8-2.9); LYMPHOCYTES % 18.7 % (15.0-51.0); MEAN CORPUSCULAR HEMOGLOBIN 26.6 pg (29.0-33.0); MEAN CORPUSCULAR HGB CONC 33.3 g/dl (32.0-37.0); MEAN CORPUSCULAR VOLUME 79.7 fl (82.0-101.0); MEAN PLATELET VOLUME 10.2 fl (7.4-10.4); MONOCYTE # 0.3 10^3/ul (0.3-0.9); MONOCYTES % 4.5 % (0.0-11.0); NEUTROPHIL # 5.1 10^3/ul (1.6-7.5); NEUTROPHILS % 68.3 % (39.0-77.0); PLATELET COUNT 387 10^3/UL (140-415); RED BLOOD COUNT 4.82 10^6/ul (4.70-6.10); RED CELL DISTRIBUTION WIDTH 15.9 % (11.5-14.5)
[2017-10-24 15:17] LABS: WHITE BLOOD COUNT 7.5 10^3/ul (4.8-10.8)
[2017-10-24] MEDS: ATORVASTATIN 40 MG TAB PO (21:51)
[2017-10-25] MEDS: ACCU-CHEK XX (01:55)
[2017-10-25 05:11] LABS: ADD MAN DIFF? NO
[2017-10-25 05:17] LABS: BASOPHIL # 0.1 10^3/ul (0.0-0.1); BASOPHILS % 0.7 % (0.0-2.0); EOSINOPHILS # 0.6 10^3/ul (0.0-0.5); EOSINOPHILS % 8.5 % (0.0-7.0); HEMATOCRIT 38.6 % (42.0-52.0); HEMOGLOBIN 12.6 g/dl (14.0-18.0); LYMPHOCYTES # 1.9 10^3/ul (0.8-2.9); LYMPHOCYTES % 27.5 % (15.0-51.0); MEAN CORPUSCULAR HEMOGLOBIN 25.9 pg (29.0-33.0); MEAN CORPUSCULAR HGB CONC 32.6 g/dl (32.0-37.0); MEAN CORPUSCULAR VOLUME 79.4 fl (82.0-101.0); MONOCYTE # 0.5 10^3/ul (0.3-0.9); MONOCYTES % 7.5 % (0.0-11.0); NEUTROPHIL # 3.8 10^3/ul (1.6-7.5); NEUTROPHILS % 55.4 % (39.0-77.0); PLATELET COUNT 387 10^3/UL (140-415); RED BLOOD COUNT 4.86 10^6/ul (4.70-6.10); RED CELL DISTRIBUTION WIDTH 15.5 % (11.5-14.5)
[2017-10-25 05:17] LABS: WHITE BLOOD COUNT 6.8 10^3/ul (4.8-10.8)
[2017-10-25 05:36] LABS: ANION GAP 13 (8-16); BLOOD UREA NITROGEN 20 mg/dl (7-20); CALCIUM 9.4 mg/dl (8.4-10.2); CARBON DIOXIDE 23 mmol/L (21-31); CHLORIDE 107 mmol/L (97-110); CREATININE 0.83 mg/dl (0.61-1.24); GLUCOSE 103 mg/dl (70-220); POTASSIUM 3.6 mmol/L (3.5-5.1); SODIUM 139 mmol/L (135-144)
[2017-10-25 05:52] LABS: PHOSPHORUS 3.8 mg/dl (2.5-4.9)
[2017-10-25 05:52] LABS: MAGNESIUM 1.8 mg/dl (1.7-2.5)
[2017-10-25] MEDS: FUROSEMIDE 20 MG TAB PO ×2 (05:56→18:00)
[2017-10-25] MEDS: PANTOPRAZOLE (EC) 40 MG TAB PO (05:56)
[2017-10-25] MEDS: INSULIN ASPART [NOVOLOG] 3 ML PEN SC ×4 (07:50→21:00)
[2017-10-25] MEDS: FLUTICASONE 0.05% 16 GM NAS SPRAY NASAL ×2 (08:18→21:00)
[2017-10-25] MEDS: ZINC OXIDE 20% 30 GM OINT TOP ×2 (09:00→21:36)
[2017-10-25] MEDS: TICAGRELOR 90 MG TABLET PO ×2 (09:00→21:41)
[2017-10-25] MEDS: ENOXAPARIN 40 MG/0.4 ML SYG SC (09:00)
[2017-10-25] MEDS: ASPIRIN (EC) 81 MG TAB PO (09:00)
[2017-10-25] MEDS: BENZONATATE 100 MG CAP PO ×2 (09:00→21:35)
[2017-10-25] MEDS: BALSAM PERU/CASTOR OIL 60 GM TUBE TOP ×2 (09:00→21:36)
[2017-10-25] MEDS: LORAZEPAM 0.5 MG TAB PO (21:34)
[2017-10-25] MEDS: ATORVASTATIN 40 MG TAB PO (21:34)
[2017-10-26] MEDS: ACCU-CHEK XX (02:00)
[2017-10-26] MEDS: BISACODYL (EC) 5 MG TAB PO (06:25)
[2017-10-26] MEDS: FUROSEMIDE 20 MG TAB PO ×2 (06:26→17:51)
[2017-10-26] MEDS: PANTOPRAZOLE (EC) 40 MG TAB PO (06:26)
[2017-10-26] MEDS: INSULIN ASPART [NOVOLOG] 3 ML PEN SC ×4 (07:50→21:00)
[2017-10-26] MEDS: FLUTICASONE 0.05% 16 GM NAS SPRAY NASAL ×2 (09:00→21:15)
[2017-10-26] MEDS: BENZONATATE 100 MG CAP PO ×2 (09:29→21:14)
[2017-10-26] MEDS: ASPIRIN (EC) 81 MG TAB PO (09:29)
[2017-10-26] MEDS: TICAGRELOR 90 MG TABLET PO ×3 (09:31→21:22)
[2017-10-26] MEDS: BALSAM PERU/CASTOR OIL 60 GM TUBE TOP ×2 (09:32→21:16)
[2017-10-26] MEDS: ENOXAPARIN 40 MG/0.4 ML SYG SC (09:32)
[2017-10-26] MEDS: ZINC OXIDE 20% 30 GM OINT TOP ×2 (09:32→21:16)
[2017-10-26] MEDS: ATORVASTATIN 40 MG TAB PO (21:15)
[2017-10-27] MEDS: ACCU-CHEK XX (02:00)
[2017-10-27] MEDS: ZOLPIDEM 5 MG TAB PO ×2 (02:14→21:09)
[2017-10-27] MEDS: FUROSEMIDE 20 MG TAB PO ×2 (06:04→18:10)
[2017-10-27] MEDS: PANTOPRAZOLE (EC) 40 MG TAB PO (06:04)
[2017-10-27] MEDS: INSULIN ASPART [NOVOLOG] 3 ML PEN SC ×4 (07:50→21:00)
[2017-10-27] MEDS: FLUTICASONE 0.05% 16 GM NAS SPRAY NASAL ×2 (09:00→21:09)
[2017-10-27] MEDS: ASPIRIN (EC) 81 MG TAB PO (09:16)
[2017-10-27] MEDS: BENZONATATE 100 MG CAP PO ×2 (09:16→21:09)
[2017-10-27] MEDS: ENOXAPARIN 40 MG/0.4 ML SYG SC (09:20)
[2017-10-27] MEDS: TICAGRELOR 90 MG TABLET PO ×2 (09:20→21:10)
[2017-10-27] MEDS: BALSAM PERU/CASTOR OIL 60 GM TUBE TOP ×2 (09:21→21:13)
[2017-10-27] MEDS: ZINC OXIDE 20% 30 GM OINT TOP ×2 (09:21→21:13)
[2017-10-27] MEDS: ATORVASTATIN 40 MG TAB PO (21:10)
[2017-10-28] MEDS: ACCU-CHEK XX (02:00)
[2017-10-28] MEDS: FUROSEMIDE 20 MG TAB PO ×2 (05:45→18:37)
[2017-10-28] MEDS: PANTOPRAZOLE (EC) 40 MG TAB PO (05:45)
[2017-10-28] MEDS: INSULIN ASPART [NOVOLOG] 3 ML PEN SC ×4 (08:58→21:00)
[2017-10-28] MEDS: BENZONATATE 100 MG CAP PO ×2 (08:59→21:29)
[2017-10-28] MEDS: ASPIRIN (EC) 81 MG TAB PO (09:00)
[2017-10-28] MEDS: FLUTICASONE 0.05% 16 GM NAS SPRAY NASAL ×2 (09:00→21:00)
[2017-10-28] MEDS: ZINC OXIDE 20% 30 GM OINT TOP ×2 (09:00→21:42)
[2017-10-28] MEDS: BALSAM PERU/CASTOR OIL 60 GM TUBE TOP ×2 (09:00→21:40)
[2017-10-28] MEDS: TICAGRELOR 90 MG TABLET PO ×2 (09:03→21:34)
[2017-10-28] MEDS: ENOXAPARIN 40 MG/0.4 ML SYG SC (09:03)
[2017-10-28] MEDS: ZOLPIDEM 5 MG TAB PO (21:29)
[2017-10-28] MEDS: ATORVASTATIN 40 MG TAB PO (21:29)
[2017-10-29] MEDS: ACCU-CHEK XX ×2 (01:58→23:33)
[2017-10-29] MEDS: PANTOPRAZOLE (EC) 40 MG TAB PO (05:55)
[2017-10-29] MEDS: FUROSEMIDE 20 MG TAB PO ×2 (05:56→18:06)
[2017-10-29 08:57] LABS: ADD UMIC YES; UR ASCORBIC ACID NEGATIVE (NEGATIVE); UR BILIRUBIN (Dip) NEGATIVE (NEGATIVE); UR BLOOD (Dip) 3+ mg/dL (NEGATIVE); UR CLARITY CLOUDY (CLEAR); UR COLOR RED (YELLOW); UR GLUCOSE (Dip) NEGATIVE (NEGATIVE); UR KETONES (Dip) NEGATIVE (NEGATIVE); UR LEUKOCYTE ESTERASE (Dip) NEGATIVE Leu/ul (NEGATIVE); UR NITRITE (Dip) NEGATIVE (NEGATIVE); UR RBC > 182 /HPF (0-5); UR SPECIFIC GRAVITY (Dip) 1.014 (1.003-1.030); UR TOTAL PROTEIN (Dip) 2+ mg/dl (NEGATIVE); UR UROBILINOGEN (Dip) NEGATIVE (NEGATIVE); UR WBC 0 /HPF (0-5)
[2017-10-29] MEDS: FLUTICASONE 0.05% 16 GM NAS SPRAY NASAL ×2 (09:00→20:20)
[2017-10-29] MEDS: INSULIN ASPART [NOVOLOG] 3 ML PEN SC ×4 (09:05→20:24)
[2017-10-29] MEDS: BALSAM PERU/CASTOR OIL 60 GM TUBE TOP ×2 (09:07→20:24)
[2017-10-29] MEDS: ZINC OXIDE 20% 30 GM OINT TOP ×2 (09:07→20:24)
[2017-10-29] MEDS: BENZONATATE 100 MG CAP PO ×2 (09:08→20:24)
[2017-10-29] MEDS: ASPIRIN (EC) 81 MG TAB PO (09:10)
[2017-10-29] MEDS: TICAGRELOR 90 MG TABLET PO ×2 (09:12→20:24)
[2017-10-29 09:13] LABS: ADD MAN DIFF? NO
[2017-10-29] MEDS: ENOXAPARIN 40 MG/0.4 ML SYG SC (09:13)
[2017-10-29 09:16] LABS: BASOPHIL # 0.1 10^3/ul (0.0-0.1); BASOPHILS % 0.9 % (0.0-2.0); EOSINOPHILS # 0.5 10^3/ul (0.0-0.5); HEMATOCRIT 41.7 % (42.0-52.0); HEMOGLOBIN 13.5 g/dl (14.0-18.0); LYMPHOCYTES # 1.8 10^3/ul (0.8-2.9); LYMPHOCYTES % 20.8 % (15.0-51.0); MEAN CORPUSCULAR HEMOGLOBIN 26.4 pg (29.0-33.0); MEAN CORPUSCULAR HGB CONC 32.4 g/dl (32.0-37.0); MEAN CORPUSCULAR VOLUME 81.6 fl (82.0-101.0); MONOCYTE # 0.7 10^3/ul (0.3-0.9); MONOCYTES % 8.3 % (0.0-11.0); NEUTROPHIL # 5.3 10^3/ul (1.6-7.5); NEUTROPHILS % 63.2 % (39.0-77.0); PLATELET COUNT 398 10^3/UL (140-415); RED BLOOD COUNT 5.11 10^6/ul (4.70-6.10); RED CELL DISTRIBUTION WIDTH 16.2 % (11.5-14.5)
[2017-10-29 09:16] LABS: WHITE BLOOD COUNT 8.5 10^3/ul (4.8-10.8)
[2017-10-29] MEDS: ARTIFICIAL TEARS 15 ML OPH BOTH EYES (18:06)
[2017-10-29] MEDS: ATORVASTATIN 40 MG TAB PO (20:20)
[2017-10-30] MEDS: PANTOPRAZOLE (EC) 40 MG TAB PO (05:18)
[2017-10-30] MEDS: FUROSEMIDE 20 MG TAB PO ×2 (05:19→18:39)
[2017-10-30] MEDS: INSULIN ASPART [NOVOLOG] 3 ML PEN SC ×4 (07:50→20:18)
[2017-10-30] MEDS: ASPIRIN (EC) 81 MG TAB PO (08:32)
[2017-10-30] MEDS: BENZONATATE 100 MG CAP PO ×2 (08:32→20:16)
[2017-10-30] MEDS: ARTIFICIAL TEARS 15 ML OPH BOTH EYES (08:32)
[2017-10-30] MEDS: ZINC OXIDE 20% 30 GM OINT TOP ×2 (08:38→21:00)
[2017-10-30] MEDS: BALSAM PERU/CASTOR OIL 60 GM TUBE TOP ×2 (08:38→21:00)
[2017-10-30] MEDS: FLUTICASONE 0.05% 16 GM NAS SPRAY NASAL ×2 (08:39→21:00)
[2017-10-30] MEDS: ENOXAPARIN 40 MG/0.4 ML SYG SC (08:46)
[2017-10-30] MEDS: TICAGRELOR 90 MG TABLET PO ×2 (08:47→20:18)
[2017-10-30] MEDS: ATORVASTATIN 40 MG TAB PO (20:16)
[2017-10-31] MEDS: ACCU-CHEK XX (01:04)
[2017-10-31] MEDS: ARTIFICIAL TEARS 15 ML OPH BOTH EYES ×3 (05:08→20:48)
[2017-10-31] MEDS: PANTOPRAZOLE (EC) 40 MG TAB PO (05:09)
[2017-10-31] MEDS: FUROSEMIDE 20 MG TAB PO ×2 (05:09→18:10)
[2017-10-31] MEDS: INSULIN ASPART [NOVOLOG] 3 ML PEN SC ×4 (07:50→20:41)
[2017-10-31] MEDS: BALSAM PERU/CASTOR OIL 60 GM TUBE TOP ×2 (08:41→20:36)
[2017-10-31] MEDS: ZINC OXIDE 20% 30 GM OINT TOP ×2 (08:42→20:35)
[2017-10-31] MEDS: BENZONATATE 100 MG CAP PO ×2 (08:42→20:33)
[2017-10-31] MEDS: ASPIRIN (EC) 81 MG TAB PO (08:42)
[2017-10-31] MEDS: TICAGRELOR 90 MG TABLET PO ×2 (08:45→20:37)
[2017-10-31] MEDS: ENOXAPARIN 40 MG/0.4 ML SYG SC (08:46)
[2017-10-31] MEDS: FLUTICASONE 0.05% 16 GM NAS SPRAY NASAL ×2 (08:47→20:33)
[2017-10-31] MEDS: ATORVASTATIN 40 MG TAB PO (20:33)
[2017-10-31] MEDS: ZOLPIDEM 5 MG TAB PO (20:39)
[2017-11-01] MEDS: ACCU-CHEK XX (02:00)
[2017-11-01] MEDS: PANTOPRAZOLE (EC) 40 MG TAB PO (05:31)
[2017-11-01] MEDS: FUROSEMIDE 20 MG TAB PO ×2 (05:33→17:53)
[2017-11-01] MEDS: INSULIN ASPART [NOVOLOG] 3 ML PEN SC ×4 (07:50→21:00)
[2017-11-01] MEDS: TICAGRELOR 90 MG TABLET PO ×2 (08:58→20:54)
[2017-11-01] MEDS: BENZONATATE 100 MG CAP PO ×2 (08:58→20:52)
[2017-11-01] MEDS: ASPIRIN (EC) 81 MG TAB PO (08:58)
[2017-11-01] MEDS: ENOXAPARIN 40 MG/0.4 ML SYG SC (08:59)
[2017-11-01] MEDS: FLUTICASONE 0.05% 16 GM NAS SPRAY NASAL ×2 (08:59→20:55)
[2017-11-01] MEDS: ZINC OXIDE 20% 30 GM OINT TOP ×2 (09:00→21:00)
[2017-11-01] MEDS: BALSAM PERU/CASTOR OIL 60 GM TUBE TOP ×2 (09:00→21:00)
[2017-11-01] MEDS: ZOLPIDEM 5 MG TAB PO (20:52)
[2017-11-01] MEDS: ATORVASTATIN 40 MG TAB PO (20:52)
[2017-11-01] MEDS: ARTIFICIAL TEARS 15 ML OPH BOTH EYES (20:55)
[2017-11-02] MEDS: ACCU-CHEK XX (02:00)
[2017-11-02 04:53] LABS: ADD MAN DIFF? NO
[2017-11-02 04:56] LABS: BASOPHIL # 0.1 10^3/ul (0.0-0.1); BASOPHILS % 1.1 % (0.0-2.0); EOSINOPHILS # 0.4 10^3/ul (0.0-0.5); EOSINOPHILS % 4.2 % (0.0-7.0); HEMATOCRIT 36.7 % (42.0-52.0); LYMPHOCYTES # 2.4 10^3/ul (0.8-2.9); LYMPHOCYTES % 24.3 % (15.0-51.0); MEAN CORPUSCULAR HEMOGLOBIN 26.3 pg (29.0-33.0); MEAN CORPUSCULAR HGB CONC 32.7 g/dl (32.0-37.0); MEAN CORPUSCULAR VOLUME 80.5 fl (82.0-101.0); MONOCYTE # 0.9 10^3/ul (0.3-0.9); MONOCYTES % 9.3 % (0.0-11.0); NEUTROPHILS % 60.2 % (39.0-77.0); PLATELET COUNT 360 10^3/UL (140-415); RED BLOOD COUNT 4.56 10^6/ul (4.70-6.10); RED CELL DISTRIBUTION WIDTH 16.5 % (11.5-14.5)
[2017-11-02 04:56] LABS: WHITE BLOOD COUNT 9.9 10^3/ul (4.8-10.8)
[2017-11-02 05:23] LABS: ANION GAP 14 (8-16); BLOOD UREA NITROGEN 19 mg/dl (7-20); CALCIUM 9.6 mg/dl (8.4-10.2); CARBON DIOXIDE 26 mmol/L (21-31); CHLORIDE 105 mmol/L (97-110); CREATININE 0.83 mg/dl (0.61-1.24); GLUCOSE 131 mg/dl (70-220); POTASSIUM 3.5 mmol/L (3.5-5.1); SODIUM 141 mmol/L (135-144)
[2017-11-02] MEDS: PANTOPRAZOLE (EC) 40 MG TAB PO (06:14)
[2017-11-02] MEDS: FUROSEMIDE 20 MG TAB PO ×2 (06:15→18:17)
[2017-11-02] MEDS: INSULIN ASPART [NOVOLOG] 3 ML PEN SC ×4 (07:50→21:00)
[2017-11-02] MEDS: FLUTICASONE 0.05% 16 GM NAS SPRAY NASAL ×3 (08:36→21:07)
[2017-11-02] MEDS: ARTIFICIAL TEARS 15 ML OPH BOTH EYES (08:37)
[2017-11-02] MEDS: BENZONATATE 100 MG CAP PO ×2 (08:38→21:06)
[2017-11-02] MEDS: ASPIRIN (EC) 81 MG TAB PO (08:38)
[2017-11-02] MEDS: BALSAM PERU/CASTOR OIL 60 GM TUBE TOP ×2 (08:39→21:08)
[2017-11-02] MEDS: ZINC OXIDE 20% 30 GM OINT TOP ×2 (08:39→21:08)
[2017-11-02] MEDS: ENOXAPARIN 40 MG/0.4 ML SYG SC (08:42)
[2017-11-02] MEDS: TICAGRELOR 90 MG TABLET PO ×2 (08:42→21:11)
[2017-11-02] MEDS: ATORVASTATIN 40 MG TAB PO (21:06)
[2017-11-03] MEDS: ACCU-CHEK XX (02:00)
[2017-11-03] MEDS: PANTOPRAZOLE (EC) 40 MG TAB PO (06:19)
[2017-11-03] MEDS: FUROSEMIDE 20 MG TAB PO ×2 (06:19→17:43)
[2017-11-03] MEDS: INSULIN ASPART [NOVOLOG] 3 ML PEN SC ×4 (07:50→21:00)
[2017-11-03] MEDS: FLUTICASONE 0.05% 16 GM NAS SPRAY NASAL ×2 (08:40→21:16)
[2017-11-03] MEDS: BENZONATATE 100 MG CAP PO ×2 (08:42→21:16)
[2017-11-03] MEDS: ASPIRIN (EC) 81 MG TAB PO (08:42)
[2017-11-03] MEDS: TICAGRELOR 90 MG TABLET PO ×2 (08:42→21:18)
[2017-11-03] MEDS: ENOXAPARIN 40 MG/0.4 ML SYG SC (08:43)
[2017-11-03] MEDS: BALSAM PERU/CASTOR OIL 60 GM TUBE TOP ×2 (08:46→21:25)
[2017-11-03] MEDS: ZINC OXIDE 20% 30 GM OINT TOP ×2 (08:46→21:24)
[2017-11-03] MEDS: ATORVASTATIN 40 MG TAB PO (21:19)
[2017-11-04] MEDS: ACCU-CHEK XX (02:00)
[2017-11-04] MEDS: FUROSEMIDE 20 MG TAB PO ×2 (06:18→18:08)
[2017-11-04] MEDS: PANTOPRAZOLE (EC) 40 MG TAB PO (06:18)
[2017-11-04] MEDS: INSULIN ASPART [NOVOLOG] 3 ML PEN SC ×4 (07:50→21:00)
[2017-11-04] MEDS: ASPIRIN (EC) 81 MG TAB PO (09:11)
[2017-11-04] MEDS: BENZONATATE 100 MG CAP PO ×2 (09:12→21:41)
[2017-11-04] MEDS: BALSAM PERU/CASTOR OIL 60 GM TUBE TOP ×2 (09:12→23:03)
[2017-11-04] MEDS: ZINC OXIDE 20% 30 GM OINT TOP ×2 (09:12→23:02)
[2017-11-04] MEDS: FLUTICASONE 0.05% 16 GM NAS SPRAY NASAL ×2 (09:12→21:00)
[2017-11-04] MEDS: TICAGRELOR 90 MG TABLET PO ×2 (09:13→21:47)
[2017-11-04] MEDS: ENOXAPARIN 40 MG/0.4 ML SYG SC (09:14)
[2017-11-04] MEDS: ATORVASTATIN 40 MG TAB PO (21:42)
[2017-11-05] MEDS: ACCU-CHEK XX (02:00)
[2017-11-05] MEDS: FUROSEMIDE 20 MG TAB PO ×2 (05:40→18:42)
[2017-11-05] MEDS: PANTOPRAZOLE (EC) 40 MG TAB PO (05:40)
[2017-11-05] MEDS: INSULIN ASPART [NOVOLOG] 3 ML PEN SC ×4 (07:50→21:00)
[2017-11-05] MEDS: FLUTICASONE 0.05% 16 GM NAS SPRAY NASAL ×2 (08:28→21:47)
[2017-11-05] MEDS: BENZONATATE 100 MG CAP PO ×2 (08:28→21:47)
[2017-11-05] MEDS: ASPIRIN (EC) 81 MG TAB PO (08:30)
[2017-11-05] MEDS: TICAGRELOR 90 MG TABLET PO ×2 (08:30→21:50)
[2017-11-05] MEDS: ENOXAPARIN 40 MG/0.4 ML SYG SC (08:41)
[2017-11-05] MEDS: BALSAM PERU/CASTOR OIL 60 GM TUBE TOP ×2 (15:17→21:51)
[2017-11-05] MEDS: ZINC OXIDE 20% 30 GM OINT TOP ×2 (15:17→21:51)
[2017-11-05] MEDS: ATORVASTATIN 40 MG TAB PO (21:47)
[2017-11-06] MEDS: ACCU-CHEK XX (01:47)
[2017-11-06 05:36] LABS: ADD MAN DIFF? NO
[2017-11-06 05:38] LABS: BASOPHIL # 0.1 10^3/ul (0.0-0.1); BASOPHILS % 0.7 % (0.0-2.0); EOSINOPHILS # 0.3 10^3/ul (0.0-0.5); EOSINOPHILS % 2.2 % (0.0-7.0); HEMOGLOBIN 12.1 g/dl (14.0-18.0); LYMPHOCYTES # 2.7 10^3/ul (0.8-2.9); LYMPHOCYTES % 23.8 % (15.0-51.0); MEAN CORPUSCULAR HEMOGLOBIN 26.1 pg (29.0-33.0); MEAN CORPUSCULAR HGB CONC 31.8 g/dl (32.0-37.0); MEAN CORPUSCULAR VOLUME 82.1 fl (82.0-101.0); MEAN PLATELET VOLUME 10.2 fl (7.4-10.4); MONOCYTE # 0.9 10^3/ul (0.3-0.9); MONOCYTES % 8.4 % (0.0-11.0); NEUTROPHIL # 7.2 10^3/ul (1.6-7.5); NEUTROPHILS % 64.2 % (39.0-77.0); PLATELET COUNT 313 10^3/UL (140-415); RED BLOOD COUNT 4.63 10^6/ul (4.70-6.10); RED CELL DISTRIBUTION WIDTH 16.7 % (11.5-14.5)
[2017-11-06 05:38] LABS: WHITE BLOOD COUNT 11.2 10^3/ul (4.8-10.8)
[2017-11-06] MEDS: FUROSEMIDE 20 MG TAB PO ×2 (05:52→18:14)
[2017-11-06] MEDS: PANTOPRAZOLE (EC) 40 MG TAB PO (05:52)
[2017-11-06 06:07] LABS: ANION GAP 13 (8-16); BLOOD UREA NITROGEN 19 mg/dl (7-20); CALCIUM 9.7 mg/dl (8.4-10.2); CARBON DIOXIDE 29 mmol/L (21-31); CHLORIDE 105 mmol/L (97-110); CREATININE 1.15 mg/dl (0.61-1.24); GLUCOSE 116 mg/dl (70-220); POTASSIUM 3.7 mmol/L (3.5-5.1); SODIUM 143 mmol/L (135-144)
[2017-11-06] MEDS: INSULIN ASPART [NOVOLOG] 3 ML PEN SC ×4 (07:50→21:00)
[2017-11-06] MEDS: BENZONATATE 100 MG CAP PO ×2 (08:34→21:29)
[2017-11-06] MEDS: ASPIRIN (EC) 81 MG TAB PO (08:34)
[2017-11-06] MEDS: FLUTICASONE 0.05% 16 GM NAS SPRAY NASAL ×2 (08:34→21:29)
[2017-11-06] MEDS: ZINC OXIDE 20% 30 GM OINT TOP ×2 (08:39→21:29)
[2017-11-06] MEDS: BALSAM PERU/CASTOR OIL 60 GM TUBE TOP ×2 (08:39→21:29)
[2017-11-06] MEDS: ENOXAPARIN 40 MG/0.4 ML SYG SC (08:43)
[2017-11-06] MEDS: TICAGRELOR 90 MG TABLET PO ×2 (08:43→21:34)
[2017-11-06] MEDS: metFORMIN 500 MG TAB PO (18:14)
[2017-11-06] MEDS: ATORVASTATIN 40 MG TAB PO (21:29)
[2017-11-07] MEDS: ACCU-CHEK XX (01:06)
[2017-11-07] MEDS: PANTOPRAZOLE (EC) 40 MG TAB PO (05:42)
[2017-11-07] MEDS: FUROSEMIDE 20 MG TAB PO ×2 (05:43→17:59)
[2017-11-07] MEDS: INSULIN ASPART [NOVOLOG] 3 ML PEN SC ×4 (08:50→20:33)
[2017-11-07] MEDS: ZINC OXIDE 20% 30 GM OINT TOP ×2 (08:55→20:34)
[2017-11-07] MEDS: ASPIRIN (EC) 81 MG TAB PO (08:55)
[2017-11-07] MEDS: BENZONATATE 100 MG CAP PO ×2 (08:55→20:30)
[2017-11-07] MEDS: metFORMIN 500 MG TAB PO ×2 (08:55→17:59)
[2017-11-07] MEDS: BALSAM PERU/CASTOR OIL 60 GM TUBE TOP ×2 (08:56→20:34)
[2017-11-07] MEDS: FLUTICASONE 0.05% 16 GM NAS SPRAY NASAL ×2 (08:57→20:33)
[2017-11-07] MEDS: TICAGRELOR 90 MG TABLET PO ×2 (09:02→20:32)
[2017-11-07] MEDS: ENOXAPARIN 40 MG/0.4 ML SYG SC (09:02)
[2017-11-07] MEDS: ATORVASTATIN 40 MG TAB PO (20:32)
[2017-11-07] MEDS: ZOLPIDEM 5 MG TAB PO (22:35)
[2017-11-08] MEDS: ACCU-CHEK XX (01:00)
[2017-11-08] MEDS: PANTOPRAZOLE (EC) 40 MG TAB PO (05:07)
[2017-11-08] MEDS: FUROSEMIDE 20 MG TAB PO ×2 (05:09→17:41)
[2017-11-08] MEDS: INSULIN ASPART [NOVOLOG] 3 ML PEN SC ×4 (07:50→20:49)
[2017-11-08] MEDS: ASPIRIN (EC) 81 MG TAB PO (09:42)
[2017-11-08] MEDS: BENZONATATE 100 MG CAP PO ×2 (09:43→20:49)
[2017-11-08] MEDS: metFORMIN 500 MG TAB PO ×2 (09:43→17:41)
[2017-11-08] MEDS: TICAGRELOR 90 MG TABLET PO ×2 (09:43→20:47)
[2017-11-08] MEDS: FLUTICASONE 0.05% 16 GM NAS SPRAY NASAL ×2 (09:44→20:48)
[2017-11-08] MEDS: BALSAM PERU/CASTOR OIL 60 GM TUBE TOP ×2 (09:44→20:45)
[2017-11-08] MEDS: ZINC OXIDE 20% 30 GM OINT TOP ×2 (09:44→20:46)
[2017-11-08] MEDS: ENOXAPARIN 40 MG/0.4 ML SYG SC (09:45)
[2017-11-08] MEDS: ZOLPIDEM 5 MG TAB PO (20:48)
[2017-11-08] MEDS: ATORVASTATIN 40 MG TAB PO (20:48)
[2017-11-09] MEDS: ACCU-CHEK XX (02:00)
[2017-11-09] MEDS: PANTOPRAZOLE (EC) 40 MG TAB PO (05:22)
[2017-11-09] MEDS: FUROSEMIDE 20 MG TAB PO (05:22)
[2017-11-09] MEDS: INSULIN ASPART [NOVOLOG] 3 ML PEN SC ×2 (07:50→11:40)
[2017-11-09] MEDS: metFORMIN 500 MG TAB PO (08:15)
[2017-11-09] MEDS: ASPIRIN (EC) 81 MG TAB PO (08:15)
[2017-11-09] MEDS: BALSAM PERU/CASTOR OIL 60 GM TUBE TOP (08:16)
[2017-11-09] MEDS: ZINC OXIDE 20% 30 GM OINT TOP (08:17)
[2017-11-09] MEDS: ENOXAPARIN 40 MG/0.4 ML SYG SC (08:19)
[2017-11-09] MEDS: BENZONATATE 100 MG CAP PO (08:27)
[2017-11-09] MEDS: TICAGRELOR 90 MG TABLET PO (08:29)
[2017-11-09] MEDS: FLUTICASONE 0.05% 16 GM NAS SPRAY NASAL (08:37)
== END 2017-11-09 14:09 | disposition home health service (06) | DRG 270 ==
LOC: TEL 10-12 12:25 → ICU 10-09 14:32 → MS1 10-22 16:29 → CCL 09:14 → REC 12:10 → MS4 16:40
PROVIDERS: Internal Medicine Interventional Cardiology
PROC: 027136Z Dilation of Coronary Artery, Two Arteries with Three Drug-eluting Intraluminal Devices, Percutaneous Approach (ICD-10-PCS; principal; 2017-10-06 10:51)
PROC: 5A02210 Assistance with Cardiac Output using Balloon Pump, Continuous (ICD-10-PCS; 2017-10-06 10:51)
PROC: 4A023N7 Measurement of Cardiac Sampling and Pressure, Left Heart, Percutaneous Approach (ICD-10-PCS; 2017-10-06 10:51)
PROC: B211YZZ Fluoroscopy of Multiple Coronary Arteries using Other Contrast (ICD-10-PCS; 2017-10-06 10:51)
PROC: B215YZZ Fluoroscopy of Left Heart using Other Contrast (ICD-10-PCS; 2017-10-06 10:51)
DX: I21.4 Non-ST elevation (NSTEMI) myocardial infarction (principal); I50.23 Acute on chronic systolic (congestive) heart failure; I42.9 Cardiomyopathy, unspecified; R65.10 Systemic inflammatory response syndrome (SIRS) of non-infectious origin without acute organ dysfunction; F33.9 Major depressive disorder, recurrent, unspecified; R45.851 Suicidal ideations; I10 Essential (primary) hypertension; I25.10 Atherosclerotic heart disease of native coronary artery without angina pectoris; I25.5 Ischemic cardiomyopathy; E11.9 Type 2 diabetes mellitus without complications; G35 Multiple sclerosis; D50.9 Iron deficiency anemia, unspecified; G89.4 Chronic pain syndrome; F17.200 Nicotine dependence, unspecified, uncomplicated; E87.6 Hypokalemia; J40 Bronchitis, not specified as acute or chronic; Z74.01 Bed confinement status
CPT/HCPCS: 71045; 78806; 80048; 80061; 81001; 81003; 82043; 82728; 82962; 83036; 83540; 83735; 84100; 84145; 84155; 84300; 85025; 87081; 87086; 92941; 93306; 93458; 97110; 97161; 97530